=== PATIENT | male | born 1935 | race Hispanic/Latino ===

== ENCOUNTER 2024-10-27 00:06 | Inpatient (IN) | payer MEDICARE ==
[2024-10-28 00:53] VITALS: BMI 21.9
[2024-10-28] MEDS ORDERED: Acetaminophen 650 MG Suppository PR PRN (01:32)
[2024-10-28] MEDS ORDERED: Ondansetron PF 4 MG/2 ML Vial IVP PRN (01:32)
[2024-10-28] MEDS ORDERED: Acetaminophen 325 MG TAB PO PRN (01:32)
[2024-10-28] MEDS ORDERED: Ondansetron ODT 4 MG TAB PO PRN (01:32)
[2024-10-28] MEDS ORDERED: Calcium Carbonate 500 MG ChewTAB PO PRN (01:32)
[2024-10-28 04:48] LABS: #Basophils 0.04 10x3/uL (0.0-0.2); %Basophils 0.6 % (0.0-1.0); %Eosinophils 3.2 % (0.0-10.0); %Lymphocytes 11.8 % (21.0-51.0); %Monocytes 9.9 % (0.0-10.0); %Neutrophils 74.2 % (42.0-75.0); Hematocrit 33.7 % (42.0-52.0); Mean Corpuscular HGB CONC 32.6 g/dL (32.0-36.0); Mean Corpuscular Hemoglobin 29.6 pg (27.0-31.0); Mean Corpuscular Volume 90.6 fL (78.0-98.0); Mean Platelet Volume 11.8 fL (7.4-10.4); Platelet Count 155 10x3/uL (130-400); RBC Distribution Width 14.6 % (11.5-14.5); Red Blood Cell (RBC) Count 3.72 mill/uL (4.70-6.10)
[2024-10-28 05:20] LABS: Troponin I 0.059 ng/mL (< 0.028)
[2024-10-28 06:46] LABS: ALT (SGPT) 9 U/L (Less than 45); AST (SGOT) 26 U/L (11-34); Alkaline Phosphatase 78 U/L (40-110); BUN (Urea Nitrogen) 17 mg/dL (8.4-25.7); Bilirubin, Total 0.5 mg/dL (0.3-1.2); Calc. Creatinine Clearance 38 mL/min (70-130); Calcium 8.6 mg/dL (7.8-10.44); Carbon Dioxide 25 mmol/L (23-31); Estimated GFR 63; Globulin 3.3 g/dL (2.4-3.5); Glucose 90 mg/dL (83-110); Magnesium 1.8 mg/dL (1.6-2.6); Protein, Total 6.3 g/dL (5.8-8.1)
[2024-10-28 07:50] LABS: Troponin I 0.064 ng/mL (< 0.028)
[2024-10-28 08:35] LABS: Anion Gap 10 mmol/L (10-20); Chloride 110 mmol/L (98-107); Potassium 3.6 mmol/L (3.5-5.1); Sodium 140 mmol/L (136-145)
[2024-10-28] MEDS: Famotidine 20 MG TAB PO SCH (09:16)
[2024-10-28] MEDS: Famotidine/PF 20 mg/2ml Vial SLOW IVP SCH (09:16)
[2024-10-28 09:35] LABS: Troponin I 0.062 ng/mL (< 0.028)
[2024-10-28] MEDS ORDERED: Ipratropium/Albuterol 3 ML NEB NEB PRN (20:26)
[2024-10-28] MEDS: hydrALAZINE 20 MG/ML VIAL SLOW IVP SCH (20:34)
[2024-10-29] MEDS ORDERED: Regadenoson 0.4 MG/5 ML SYRINGE ONE (08:07)
[2024-10-29] MEDS: Famotidine/PF 20 mg/2ml Vial SLOW IVP SCH (09:53)
[2024-10-29] MEDS: Aspirin 81 mg Enteric Coated Tablet PO SCH (09:53)
[2024-10-29] MEDS: Furosemide 20 MG TAB PO SCH (13:22)
[2024-10-29] MEDS: Carvedilol 6.25 MG TAB PO SCH (16:38)
[2024-10-29] MEDS: Sacubitril 24MG/Valsartan 26 MG TAB PO SCH (20:17)
[2024-10-30 05:33] LABS: Hemoglobin A1c 5.4 % (4.0-6.0)
[2024-10-30 07:26] LABS: Anion Gap 12 mmol/L (10-20); BUN (Urea Nitrogen) 17 mg/dL (8.4-25.7); Calc. Creatinine Clearance 38 mL/min (70-130); Calcium 8.5 mg/dL (7.8-10.44); Carbon Dioxide 23 mmol/L (23-31); Cardiac Risk 3.1 (Less than 4.5); Chloride 104 mmol/L (98-107); Cholesterol 124 mg/dl (< 200 Desired); Estimated GFR 69; Glucose 97 mg/dL (83-110); HDL Cholesterol 40 mg/dL (>60 Neg Risk); LDL Cholesterol, Calculated 70 mg/dL; Magnesium 1.8 mg/dL (1.6-2.6); Potassium 3.8 mmol/L (3.5-5.1); Sodium 135 mmol/L (136-145); Triglycerides 69 mg/dL (Less than 150)
[2024-10-30] MEDS: Furosemide 20 MG TAB PO SCH (09:57)
[2024-10-30] MEDS: Empagliflozin 10 MG TAB PO SCH (09:57)
[2024-10-31] MEDS: Sodium Chloride 0.9% 500 ML IV SCH (00:01)
[2024-10-31] MEDS ORDERED: Ipratropium/Albuterol 3 ML NEB NEB PRN (11:35)
[2024-10-31 11:56] VITALS: BP 109/64; TEMP 97.8
== END 2024-10-31 17:40 | disposition home or self-care (01) | DRG 291 ==
LOC: 2NO 00:06 → UNDOADMIN 00:06 → 2NO 10-28 00:06
PROVIDERS: ADMIT Student in an Organized Health Care Education/Training Program; ATTEND Family Medicine
DX: I11.0 Hypertensive heart disease with heart failure (principal); I50.43 Acute on chronic combined systolic (congestive) and diastolic (congestive) heart failure; Z66 Do not resuscitate; I25.10 Atherosclerotic heart disease of native coronary artery without angina pectoris; F10.90 Alcohol use, unspecified, uncomplicated; I42.0 Dilated cardiomyopathy; Z98.890 Other specified postprocedural states; Z87.891 Personal history of nicotine dependence
CPT/HCPCS: 36415; 78452; 80048; 80053; 80061; 83036; 83735; 83880; 84484; 85025; 93005; 93010; 93017; 93306; 93798; A9502; J0360; J2785; J3490; J7030